=== PATIENT | male | born 1950 | race Caucasian/White ===

== ENCOUNTER 2017-09-18 15:28 | Emergency (ER) | payer MEDICARE, OTHER ==
[~2017-09-18 15:28] MED LIST: AMLO2.5T2 PO; BENA20TA10 PO; CARI350T PO; HYDR-3972 PO; METO25TA6 PO; SIMV20TA5 PO
== END 2017-09-18 15:59 | disposition left against medical advice (07) ==
LOC: ER 15:28
DX: T17.298A Other foreign object in pharynx causing other injury, initial encounter (principal); Z53.21 Procedure and treatment not carried out due to patient leaving prior to being seen by health care provider; X58.XXXA Exposure to other specified factors, initial encounter; Y93.89 Activity, other specified; Y92.89 Other specified places as the place of occurrence of the external cause; Y99.8 Other external cause status

== ENCOUNTER 2017-10-13 14:37 | Outpatient (CLI) | payer MEDICARE, BC | END 2017-10-13 23:59 | disposition home or self-care (01) | LOC: RAD 14:37 | PROVIDERS: ATTEND Family Medicine | DX: R22.2 Localized swelling, mass and lump, trunk (principal); I10 Essential (primary) hypertension; Z85.038 Personal history of other malignant neoplasm of large intestine; Z85.118 Personal history of other malignant neoplasm of bronchus and lung | CPT/HCPCS: 71046 ==